=== PATIENT | male | born 1985 | race Caucasian/White ===

== ENCOUNTER 2018-11-07 19:03 | Emergency (ER) | payer OTHER ==
[2018-11-07 20:07] LABS: Absolute Lymphocytes (CBC) 2.1 K/uL (0.7-4.9); Eosinophils % 1.7 % (0-4.4); Hematocrit 44.8 % (39.6-49.0); Lymphocytes % 27.7 % (15.3-44.8); MPV 8.5 fL (7.6-11.3); Monocytes % 8.5 % (3.3-12.3); RBC Red Blood Cell Count 5.13 M/uL (4.33-5.43)
--- NOTE | 2018-11-07 20:18 | RAD REPORT ---
EXAM DESCRIPTION: Anila Single View11/07/2018 8:07 pm CLINICAL HISTORY: Chest pain COMPARISON: none FINDINGS: The lungs appear clear of acute infiltrate. The heart is normal size IMPRESSION: No acute abnormalities displayed
[2018-11-07 20:26] LABS: BUN Blood Urea Nitrogen 11 mg/dL (7-18); Bicarbonate 26 mmol/L (21-32); Glucose Level 91 mg/dL (74-106); Potassium 3.8 mmol/L (3.5-5.1); Sodium Level 141 mmol/L (136-145); Troponin (Emerg Dept Use Only) < 0.02 ng/mL (0.0-0.045)
--- NOTE | 2018-11-07 20:30 | RAD REPORT ---
EXAM DESCRIPTION: CT - Head Brain Wo Cont - 11/07/2018 8:18 pm CLINICAL HISTORY: Numbness COMPARISON: None. TECHNIQUE: Computed axial tomography of the head was obtained. IV contrast was not requested. All CT scans are performed using dose optimization technique as appropriate and may include automated exposure control or mA/KV adjustment according to patient size. FINDINGS: An intracranial bleed is not seen . The ventricles are normal in caliber. No extra-axial fluid collection is noted. Fluid within the sinuses/ mastoids is not seen. IMPRESSION: No acute intracranial abnormality is seen. If patient's symptoms persist MRI of the bra in would be recommended.
--- NOTE | 2018-11-07 20:44 | ER ---
Nurse's Notes [facility] Name: Edu Jerome Age: 33 yrs Sex: Male : 1985 Arrival Date: 11/07/2018 Time: 19:07 Bed 28 Private MD: Diagnosis: Palpitations Presentation: 11/07 19:20 Presenting complaint: Patient states: palpitations since Wednesday. pain to left chest ak1 wall, left jaw and left ear today. pt c/o numbness to left ear and left jaw. pt denies SOB. Transition of care: patient was not received from another setting of care. Onset of symptoms is unknown. Risk Assessment: Do you want to hurt yourself or someone else? Patient reports no desire to harm self or others. Initial Sepsis Screen: Does the patient meet any 2 criteria? No. Patient's initial sepsis screen is negative. Does the patient have a suspected source of infection? No. Patient's initial sepsis screen is negative. Care prior to arrival: None. 19:20 Method Of Arrival: Ambulatory ak1 19:20 Acuity: FATOU 3 ak1 Historical: - Allergies: 19:20 No Known Allergies; ak1 - Home Meds: 19:20 None [Active]; ak1 - PMHx: 19:20 None; ak1 - PSHx: 19:20 Appendectomy; ak1 - Immunization history:: Adult Immunizations unknown. - Social history:: Smoking status: Patient/guardian denies using tobacco. - Ebola Screening: : No symptoms or risks identified at this time. - Family history:: not pertinent. - Hospitalizations: : No recent hospitalization is reported. Screenin:17 Abuse screen: Denies threats or abuse. Denies injuries from another. Nutritional rv screening: No deficits noted. Tuberculosis screening: No symptoms or risk factors identified. Fall Risk None identified. Assessment: 19:16 General: Appears in no apparent distress. comfortable, Behavior is calm, cooperative. rv Pain: Complains of pain in left side of head and face, and left ant chest wall Pain does not radiate. Pain: Pain currently is 3 out of 10 on a pain scale. Neuro: Level of Consciousness is awake, alert, obeys commands, Oriented to person, place, time, situation. Cardiovascular: Patient's skin is warm and dry. Respiratory: Airway is patent. GI: No signs and/or symptoms were reported involving the gastrointestinal system. : No signs and/or symptoms were reported regarding the genitourinary system. EENT: No signs and/or symptoms were reported regarding the EENT system. Derm: Skin is intact. Musculoskeletal: No signs and/or symptoms reported regarding the musculoskeletal system. Vital Signs: 19:15 BP 123 / 76; Pulse 84; Resp 16; Temp 98.2; Pulse Ox 95% ; Weight 113.4 kg; Height 5 ft. rv 8 in. (172.72 cm); Pain 3/10; 20:00 BP 120 / 85; Pulse 76; Resp 16; Pulse Ox 96% ; rv 21:00 BP 113 / 79; Pulse 86; Resp 17; Pulse Ox 97% on R/A; rv 19:15 Body Mass Index 38.01 (113.40 kg, 172.72 cm) rv ED Course: 19:07 Patient arrived in ED. rg4 19:15 Cristian Mcgregor, ELMER is Primary Nurse. rv 19:21 Triage completed. ak1 19:21 Arm band placed on Patient placed in an exam room, on a stretcher, on monitor tech, ak1 on pulse oximetry, Patient notified of wait time. EKG completed in triage. Results shown to MD. 19:26 Reji Torres MD is Attending Physician. rn 20:00 Patient has correct armband on for positive identification. Bed in low position. Call rv light in reach. Side rails up X 1. Adult w/ patient. 20:00 Pulse ox on. NIBP on. rv 20:00 Initial lab(s) drawn, by ks, sent to lab. Inserted saline lock: 20 gauge in left lt1 antecubital area, using aseptic technique. 20:05 XRAY Chest (1 view) In Process Unspecified. EDMS 20:19 CT Head Brain wo Cont In Process Unspecified. EDMS 21:11 No provider procedures requiring assistance completed. IV discontinued, intact, rv bleeding controlled, No redness/swelling at site. Pressure dressing applied. Administered Medications: No medications were administered Outcome: 20:43 Discharge ordered by MD. rn 21:12 Discharged to home ambulatory. rv 21:12 Condition: good 21:12 Discharge instructions given to patient, family, Instructed on discharge instructions, follow up and referral plans. Demonstrated understanding of instructions, follow-up care. 21:12 Patient left the ED. rv Signatures: Dispatcher [employer] EDReji Mueller MD MD rn Krenek, Amber, RN RN Belen Sterling rg4 Cristian Mcgregor RN RN Sonam Merchant 1
--- NOTE | 2018-11-07 20:44 | EDPHYS ---
Physician Documentation [facility] Name: Edu Jerome Age: 33 yrs Sex: Male : 1985 Arrival Date: 11/07/2018 Time: 19:07 Bed 28 Private MD: ED Physician Reji Torres HPI: 11/07 20:38 This 33 yrs old Male presents to ER via Ambulatory with complaints of Ear rn Pain, Numbness Of Face, Palpitations. 20:39 The patient presents with a history of throbbing. Context: The symptoms occur at rest. rn 20:39 Onset: The symptoms/episode began/occurred 3 day(s) ago. 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 Modifying factors: The symptoms are aggravated by nothing. The symptoms are alleviated by nothing. Associated signs and symptoms: The patient has no apparent associated signs or symptoms, Pertinent negatives: fever, SOB, syncope, vomiting. Severity of symptoms: At their worst the symptoms were mild in the emergency department the symptoms are unchanged. The patient has experienced a previous episode. Reports left chest and shoulder pressure, assoc with palpitations, not fast just feels stronger than normal, has happened once before and went away, has been experiencing them for 3 days now, no fever/sob/cough/trauma/hemoptysis. No famhx of early cardiac problems. No syncope. . Historical: - Allergies: 19:20 No Known Allergies; ak1 - Home Meds: 19:20 None [Active]; ak1 - PMHx: 19:20 None; ak1 - PSHx: 19:20 Appendectomy; ak1 - Immunization history:: Adult Immunizations unknown. - Social history:: Smoking status: Patient/guardian denies using tobacco. - Ebola Screening: : No symptoms or risks identified at this time. - Family history:: not pertinent. - Hospitalizations: : No recent hospitalization is reported. ROS: 20:39 Constitutional: Negative for fever, chills, and weight loss, Eyes: Negative for injury, rn pain, redness, and discharge, Neck: Negative for injury, pain, and swelling, Cardiovascular: Negative for edema Respiratory: Negative for shortness of breath, cough, wheezing, and pleuritic chest pain, Abdomen/GI: Negative for abdominal pain, nausea, vomiting, diarrhea, and constipation, Back: Negative for injury and pain, MS/Extremity: Negative for injury and deformity, Skin: Negative for injury, rash, and discoloration, Neuro: Negative for headache, weakness, numbness, tingling, and seizure. Exam: 20:39 Constitutional: This is a well developed, well nourished patient who is awake, alert, rn and in no acute distress. Head/Face: Normocephalic, atraumatic. Eyes: Pupils equal round and reactive to light, extra-ocular motions intact. Lids and lashes normal. Conjunctiva and sclera are non-icteric and not injected. Cornea within normal limits. Periorbital areas with no swelling, redness, or edema. ENT: MMM Neck: Trachea midline, no thyromegaly or masses palpated, and no cervical lymphadenopathy. Supple, full range of motion without nuchal rigidity, or vertebral point tenderness. No Meningismus. Cardiovascular: Regular rate and rhythm. No pulse deficits. Respiratory: Lungs have equal breath sounds bilaterally, clear to auscultation. No increased work of breathing, no retractions or nasal flaring. Abdomen/GI: soft, non-tender MS/ Extremity: Pulses equal, no cyanosis. Neurovascular intact. Full, normal range of motion. Equal circumference. Neuro: Awake and alert, GCS 15 Vital Signs: 19:15 BP 123 / 76; Pulse 84; Resp 16; Temp 98.2; Pulse Ox 95% ; Weight 113.4 kg; Height 5 ft. rv 8 in. (172.72 cm); Pain 3/10; 20:00 BP 120 / 85; Pulse 76; Resp 16; Pulse Ox 96% ; rv 21:00 BP 113 / 79; Pulse 86; Resp 17; Pulse Ox 97% on R/A; rv 19:15 Body Mass Index 38.01 (113.40 kg, 172.72 cm) rv MDM: 19:26 Patient medically screened. rn 20:39 Differential diagnosis: arrythmia, dehydration, stress disorder. Data reviewed: vital rn signs, nurses notes, lab test result(s), EKG, radiologic studies, CT scan, plain films, and as a result, I will discharge patient. 20:42 Counseling: I had a detailed discussion with the patient and/or guardian regarding: the rn historical points, exam findings, and any diagnostic results supporting the discharge/admit diagnosis, lab results, radiology results, the need for outpatient follow up, to return to the emergency department if symptoms worsen or persist or if there are any questions or concerns that arise at home. Special discussion: Based on the patient's history, exam, and Dx evaluation, there is no indication for emergent intervention or inpatient Tx. It is understood by the patient/guardian that if the Sx's persist or worsen they need to return immediately for re-evaluation. I discussed with the patient/guardian in detail that at this point there is no indication for admission to the hospital. It is understood, however, that if the symptoms persist or worsen the patient needs to return immediately for re-evaluation. Based on the history and exam findings, there is no indication for further emergent testing or inpatient evaluation. I discussed with the patient/guardian the need to see the crystal evaluator for further evaluation of the symptoms. I discussed with the patient/guardian the need to see the primary care provider for further evaluation of the symptoms. ED course: Recommend return precautions and outpt holter/ECHO. . 11/07 19:35 Order name: CBC with Diff; Complete Time: 20:38 rn 11/07 19:35 Order name: Basic Metabolic Panel; Complete Time: 20:38 rn 11/07 19:35 Order name: EKG; Complete Time: 19:36 rn 11/07 19:35 Order name: Troponin (emerg Dept Use Only); Complete Time: 20:38 rn 11/07 19:35 Order name: XRAY Chest (1 view); Complete Time: 20:38 rn 11/07 19:35 Order name: CT Head Brain wo Cont; Complete Time: 20:38 rn 11/07 19:35 Order name: IV Start; Complete Time: 20:00 rn 11/07 19:35 Order name: EKG - Nurse/Tech; Complete Time: 20:00 rn Administered Medications: No medications were administered Disposition: 11/07/18 20:43 Discharged to Home. Impression: Palpitations. - Condition is Stable. - Discharge Instructions: Palpitations. - Medication Reconciliation Form, Thank You Letter, Antibiotic Education, Prescription Opioid Use form. - Follow up: Private Physician; When: As needed; Reason: Recheck today's complaints, Re-evaluation by your physician. - Problem is new. - Symptoms have improved. Signatures: Dispatcher [employer] EDMS Reji Torres MD MD rn Krenek, Keily, RN RN ak1 Cristian Mcgregor RN RN rv Corrections: (The following items were deleted from the chart) 21:12 20:43 11/07/2018 20:43 Discharged to Home. Impression: Palpitations. Condition is rv Stable. Forms are Medication Reconciliation Form, Thank You Letter, Antibiotic Education, Prescription Opioid Use. Follow up: Private Physician; When: As needed; Reason: Recheck today's complaints, Re-evaluation by your physician. Problem is new. Symptoms have improved. rn
--- NOTE | 2018-11-08 08:13 | EKG ---
Test Date: 2018-11-07 Test Time: 19:18:51 Bleach Boiler Puller: MEASUREMENT RESULTS: Intervals: Rate: 77 UT: 160 QRSD: 96 QT: 368 QTc: 416 Braham: P: 31 UT: 160 QRS: 40 T: 42 INTERPRETIVE STATEMENTS: Normal sinus rhythm Incomplete right bundle branch block Borderline ECG No previous ECG available for comparison Electronically Signed On 11-08-18 08:11:31 CDT by Eugene Baez
== END 2018-11-07 21:12 | disposition home or self-care (01) ==
LOC: ER 19:03
DX: R00.2 Palpitations (principal)
CPT/HCPCS: 36415; 70450; 71045; 80048; 84484; 85025; 93005; 99284

== ENCOUNTER 2021-10-14 21:12 | Emergency (ER) | payer OTHER ==
[2021-10-14] MEDS ORDERED: CEFAZOLIN SODIUM 1 GM/VIAL ONE (21:40)
[2021-10-14] MEDS ORDERED: MORPHINE 4 MG/ML SYR ONE (21:41)
[2021-10-14] MEDS ORDERED: NA CHLORIDE 0.9% 100 ML ONE (21:41)
[2021-10-14] MEDS ORDERED: ONDANSETRON 4 MG/2 ML VIAL ONE (21:41)
[2021-10-14] MEDS ORDERED: NA CHLORIDE 0.9% 1,000 ML ONE (21:41)
[2021-10-14] MEDS ORDERED: NA CHLORIDE 0.9% 250 ML ONE (21:41)
[2021-10-14] MEDS ORDERED: TETANUS & DIPHTHERIA TOX,ADULT 0.5 ML VIAL ONE (21:41)
--- NOTE | 2021-10-14 21:41 | EDPHYS ---
Physician Documentation [facility] Name: Edu Jerome Age: 36 yrs Sex: Male : 1985 Arrival Date: 10/14/2021 Time: 21:13 Bed 5 Private MD: ED Physician Jagjit Buck HPI: 10/14 21:35 This 36 yrs old Male presents to ER via Ambulatory with complaints of Snake gael bite. 21:35 The patient was bitten on the palmar aspect of distal phalanx of left index finger. gael Onset: The symptoms/episode began/occurred .75 hour(s) ago. Secondary to the bite the patient reports erythema, pain, swelling. Associated signs and symptoms: The patient has no apparent associated signs or symptoms. The patient has not experienced similar symptoms in the past. Historical: - Allergies: 21:15 No Known Allergies; ld1 - PMHx: 21:15 None; ld1 - PSHx: 21:15 Appendectomy; ld1 - Immunization history:: Adult Immunizations up to date, Client reports having NOT received the Covid vaccine. - Social history:: Smoking status: Patient denies any tobacco usage or history of. Patient/guardian denies using alcohol. - Family history:: not pertinent. ROS: 21:35 Constitutional: Negative for fever, chills, and weight loss, Eyes: Negative for injury, gael pain, redness, and discharge, ENT: Negative for injury, pain, and discharge, Neck: Negative for injury, pain, and swelling, Cardiovascular: Negative for chest pain, palpitations, and edema, Respiratory: Negative for shortness of breath, cough, wheezing, and pleuritic chest pain, Abdomen/GI: Negative for abdominal pain, nausea, vomiting, diarrhea, and constipation, Back: Negative for injury and pain, : Negative for injury, bleeding, discharge, and swelling, Skin: Negative for injury, rash, and discoloration, Neuro: Negative for headache, weakness, numbness, tingling, and seizure, Psych: Negative for depression, anxiety, suicide ideation, homicidal ideation, and hallucinations, Allergy/Immunology: Negative for hives, rash, and allergies, Endocrine: Negative for neck swelling, polydipsia, polyuria, polyphagia, and marked weight changes. 21:35 MS/extremity: Positive for Exam: 21:35 Constitutional: This is a well developed, well nourished patient who is awake, alert, gael and in no acute distress. Head/Face: Normocephalic, atraumatic. Eyes: Pupils equal round and reactive to light, extra-ocular motions intact. Lids and lashes normal. Conjunctiva and sclera are non-icteric and not injected. Cornea within normal limits. Periorbital areas with no swelling, redness, or edema. ENT: Nares patent. No nasal discharge, no septal abnormalities noted. Tympanic membranes are normal and external auditory canals are clear. Oropharynx with no redness, swelling, or masses, exudates, or evidence of obstruction, uvula midline. Mucous membranes moist. Neck: Trachea midline, no thyromegaly or masses palpated, and no cervical lymphadenopathy. Supple, full range of motion without nuchal rigidity, or vertebral point tenderness. No Meningismus. Chest/axilla: Normal chest wall appearance and motion. Nontender with no deformity. No lesions are appreciated. Cardiovascular: Regular rate and rhythm with a normal S1 and S2. No gallops, murmurs, or rubs. Normal PMI, no JVD. No pulse deficits. Respiratory: Lungs have equal breath sounds bilaterally, clear to auscultation and percussion. No rales, rhonchi or wheezes noted. No increased work of breathing, no retractions or nasal flaring. Abdomen/GI: Soft, non-tender, with normal bowel sounds. No distension or tympany. No guarding or rebound. No evidence of tenderness throughout. Back: No spinal tenderness. No costovertebral tenderness. Full range of motion. Male : Normal genitalia with no discharge or lesions. Skin: Warm, dry with normal turgor. Normal color with no rashes, no lesions, and no evidence of cellulitis. Neuro: Awake and alert, GCS 15, oriented to person, place, time, and situation. Cranial nerves II-XII grossly intact. Motor strength 5/5 in all extremities. Sensory grossly intact. Cerebellar exam normal. Normal gait. Psych: Awake, alert, with orientation to person, place and time. Behavior, mood, and affect are within normal limits. 21:35 Musculoskeletal/extremity: ROM: limited active range of motion, limited passive range of motion, limited active range of motion due to pain, limited passive range of motion due to pain, Circulation is intact in all extremities. Severe pain noted. Compartment Syndrome exam of affected extremity: is normal. Vital Signs: 21:15 BP 144 / 94; Pulse 106; Resp 20; Temp 98.6(TE); Weight 113.4 kg; Height 5 ft. 8 in. ld1 (172.72 cm); Pain 7/10; 22:00 BP 132 / 82; Pulse 93; Resp 18 S; Pulse Ox 99% on R/A; as6 23:00 BP 133 / 98; Pulse 83; Resp 18 S; Pulse Ox 99% on R/A; as6 21:15 Body Mass Index 38.01 (113.40 kg, 172.72 cm) ld1 MDM: 21:22 Patient medically screened. [facility] 10/14 21:32 Order name: CBC with Diff; Complete Time: 22:36 [facility] 10/14 21:32 Order name: Comprehensive Metabolic Panel; Complete Time: 22:36 [facility] 10/14 21:32 Order name: Hand Left 3 View XRAY [facility] 10/14 21:32 Order name: PT-INR [facility] 10/14 21:32 Order name: Fibrinogen [facility] 10/14 21:32 Order name: Ptt, Activated gael Administered Medications: 22:00 Drug: NS 0.9% 1000 ml Route: IV; Rate: 1 bolus; Site: right antecubital; as6 23:22 Follow up: Response: No adverse reaction; IV Status: Completed infusion; IV Intake: as6 1000ml 22:00 Drug: morphine 4 mg Route: IVP; Infused Over: 4 mins; Site: right antecubital; as6 23:22 Follow up: Response: No adverse reaction; RASS: Alert and Calm (0) as6 22:00 Drug: Zofran (Ondansetron) 4 mg Route: IVP; Site: right antecubital; as6 23:22 Follow up: Response: No adverse reaction as6 22:00 Drug: Ancef (cefazolin) 2 grams Route: IVPB; Infused Over: 30 mins; Site: right as6 antecubital; 23:22 Follow up: Response: No adverse reaction; IV Status: Completed infusion; IV Intake: as6 100ml 22:00 Drug: Tetanus Toxoid,Adsorbed 0.5 ml {Business Continuity Planning Director: [employer]. Exp: 07/26/2023. Lot as6 #: [id number]. } Route: IM; Site: right deltoid; 23:27 Follow up: Response: No adverse reaction as6 22:20 Drug: CroFab 5 vials Route: IV; Rate: per protocol; Site: right antecubital; as6 23:27 Follow up: IV Status: Infusion continued upon transfer as6 22:43 Drug: Dilaudid (HYDROmorphone) 1 mg Route: IVP; Site: right antecubital; as6 23:27 Follow up: Response: No adverse reaction; RASS: Alert and Calm (0) as6 22:58 CANCELLED (Inappropriate at this time): Pepcid (famotidine) 20 mg IVP once; dilute with as6 10 mL 0.9% NaCl; give over 2 minutes 23:21 Drug: Potassium Effervescent Tablet 25 mEq Route: PO; as6 23:27 Follow up: Response: No adverse reaction as6 Disposition Summary: 10/14/21 21:40 Transfer Ordered Transfer Location: [facility] Reason: Higher level of care gael Condition: Stable gael Problem: new gael Symptoms: have improved gael Accepting Physician: to [facility](10/14/21 23:40) as6 Diagnosis - Toxic effect of snake venom - grade 2 envenomation, left index finger gael - Hypokalemia gael Forms: - Medication Reconciliation Form gael - SBAR form gael Signatures: Dispatcher [employer] EDJgajit Mosqueda MD MD cha Dibbern, Lauren, RN RN ld1 Joesph Alegria RN RN as6 Corrections: (The following items were deleted from the chart) 22:37 21:[address] [facility] 22:58 22:49 Pepcid (famotidine) 20 mg IVP once; dilute with 10 mL 0.9% NaCl; give over 2 as6 minutes ordered. [facility] 23:40 22:37 to [facility] as6
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
[2021-10-14] MEDS ORDERED: CROTALIDAE ANTIVENIM 1 GM VIAL IV ONE (21:42)
[2021-10-14 21:55] LABS: Absolute Lymphocytes (CBC) 3.1 K/uL (0.7-4.9); Lymphocytes % 32.1 % (15.3-44.8); MPV 7.8 fL (7.6-11.3); RBC Red Blood Cell Count 5.46 M/uL (4.33-5.43)
[2021-10-14 22:08] LABS: Albumin 4.2 g/dL (3.4-5.0); Bilirubin Total 0.6 mg/dL (0.2-1.0); Potassium 3.4 mmol/L (3.5-5.1); Protein, Total 8.1 g/dL (6.4-8.2)
[2021-10-14] MEDS ORDERED: HYDROMORPHONE HCL 1 MG/ML INJ ONE (22:42)
[2021-10-14] MEDS ORDERED: POTASSIUM 25 MEQ EFFERV TAB ONE (23:25)
[2021-10-15 00:38] VITALS: O2SAT 99
[2021-10-15 00:40] VITALS: TEMP 98.6
[2021-10-15 00:42] VITALS: BP 133/98
--- NOTE | 2021-10-15 11:11 | RAD REPORT ---
EXAM DESCRIPTION: RAD - Hand Left 3 View - 10/14/2021 10:09 pm CLINICAL HISTORY: 36 years Male PAIN COMPARISON: None TECHNIQUE: 3 images of the right hand were obtained. FINDINGS: No acute fractures seen. Normal bony mineralization. No erosive or lytic lesions seen. Dorsal soft tissue swelling. IMPRESSION: No acute fracture or dislocation seen. Electronically signed by: Mariam Schulz MD 10/14/2021 10:30 PM CDT Due to temporary technical issues with the PACS/Fluency reporting system, reports are being signed by the in house radiologist without review as a courtesy to ensure prompt reporting. The interpreting r adiologist is fully responsible for the content of the report.
== END 2021-10-14 23:40 | disposition short-term general hospital (02) ==
LOC: ER 21:12
DX: T63.001A Toxic effect of unspecified snake venom, accidental (unintentional), initial encounter (principal); E87.6 Hypokalemia; Z23 Encounter for immunization
CPT/HCPCS: 85025; 36415; 85384; 85610; 85730; 80053; 73130; 90714; J0840; J1170; J7050; J7030; J2405; J0690; 90471; 96365; 96375; 99285

== ENCOUNTER 2023-11-06 21:44 | Emergency (ER) | payer OTHER ==
[2023-11-06] MEDS ORDERED: LIDOCAINE 2% W/EPI 1:200,000 MPF 20 ML VIAL IM ONE (22:05)
[2023-11-06] MEDS ORDERED: TDAP (DIPHTH,PERTUSS(ACELL),TET VAC) 0.5 ML VIAL IMVAC ONE (22:18)
[2023-11-06] MEDS ORDERED: HYDROCODONE/APAP 7.5/325 MG TAB ONE (22:18)
[2023-11-06] MEDS ORDERED: HYDROCODONE/APAP 10/325 TAB ONE (22:22)
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
[2023-11-07] MEDS ORDERED: SMZ./TMP. 800/160 MG TABLET ONE (00:01)
[2023-11-07] MEDS ORDERED: AMOX/K CLAV 875 MG TAB ONE (00:01)
[2023-11-07 00:56] VITALS: BP 136/85; TEMP 97.9; O2SAT 99
--- NOTE | 2023-11-09 10:27 | RAD REPORT ---
EXAM DESCRIPTION: CT - Head C Spine Mpr Wo Con - 11/07/2023 6:56 am CLINICAL HISTORY: 38 years, Male, TRAUMA COMPARISON: None FINDINGS: Multiple transaxial tomograms of the brain were obtained from the base of the skull to the vertex without contrast. Multiple axial CT images through the cervical spine were obtained at 2 mm slice thickness at 2 mm int erval reconstruction. In addition 2-D multiplanar reformats and the sagittal coronal plane were perfo rmed and reviewed. An individualized dose optimization technique, Automated Exposure Control, was utilized for the perfo rmed procedure. Brain: Brain parenchyma as well as the nava-white matter differentiation demonstrate to be within nor mal limits. There is no evidence for acute intraparenchymal hemorrhage. There is no midline shifts an d/or mass effect. No focal areas of hypodensities Ventricles: Lateral ventricles and cisterns displace normal appearance. Vasculature: No visualized abnormalities in the arteries or dural venous sinuses. Scalp/skull: The calvarium demonstrate to be intact with no evidence for acute bony injuries. Sinuses: The visualized paranasal sinuses and mastoid air cells demonstrate to be clear. Orbits: No significant abnormalities in the visualized orbital structures. Curvature: There is straightening of the cervical spine perhaps related to positioning. The alignment , the vertebral bodies are normal. Bones: There is no evidence of fracture or subluxation. Discs: There are no significant degenerative changes and/or spondylosis. There is no evidence for significant spinal canal narrowing and/or stenosis. Joints: The uncovertebral joints demonstrate unremarkable. Soft tissues: There is no prevertebral soft tissue swelling. Sagittal coronal reformatted images demonstrate no subluxation or bony abnormalities. Lung apices: The lung apices demonstrate to be within normal limits. IMPRESSION: No evidence for acute traumatic injury to the head. Straightening of the cervical spine perhaps related to positioning and/or less likely muscle spasm. No evidence for fracture or subluxation. Electronically signed by: Dejan Knapp MD 11/06/2023 10:59 PM CDT Due to temporary technical issues with the PACS/Fluency reporting system, reports are being signed by the in house radiologist without review as a courtesy to ensure prompt reporting. The interpreting r adiologist is fully responsible for the content of the report.
--- NOTE | 2023-11-09 11:14 | RAD REPORT ---
EXAM DESCRIPTION: CT - Facial Bones W/ Mpr - 11/07/2023 6:56 am CLINICAL HISTORY: FACIAL PAIN. COMPARISON: None. TECHNIQUE: CT of the maxillofacial region was performed without IV contrast. Axial, coronal, and sag ittal reconstructions were created and sent to PACS. This exam was performed according to our departmental dose-optimization program, which includes autom ated exposure control, adjustment of the mA and/or kV according to patient size and/or use of iterati ve reconstruction technique. FINDINGS: Acute bilateral comminuted mildly displaced nasal bone fractures with minimal impaction on the right. The bony nasal septum is intact. No additional acute fracture is visualized. The pterygoi d plates are intact. Bilateral temporomandibular joint alignment is maintained. The visualized parana ajith sinuses and mastoid air cells are clear. Unremarkable appearance of the orbital contents and visu alized intracranial contents. No radiopaque foreign object. IMPRESSION: Acute mildly comminuted displaced bilateral nasal bone fractures. Electronically signed by: Gabriela Delgado MD 11/06/2023 10:58 PM CDT Due to temporary technical issues with the PACS/Fluency reporting system, reports are being signed by the in house radiologist without review as a courtesy to ensure prompt reporting. The interpreting r adiologist is fully responsible for the content of the report.
== END 2023-11-07 00:11 | disposition home or self-care (01) ==
LOC: ER 21:44
PROC: 0HQ1XZZ Repair Face Skin, External Approach (ICD-10-PCS; principal; 2023-11-07)
DX: S02.2XXA Fracture of nasal bones, initial encounter for closed fracture (principal); S01.21XA Laceration without foreign body of nose, initial encounter
CPT/HCPCS: 70450; 70486; 72125; 76377; 96372; 99284